=== PATIENT | female | born 1990 | race Caucasian/White ===

== ENCOUNTER 2016-06-18 03:06 | Emergency (ER) | payer OTHER ==
[~2016-06-18] VITALS: Ht 157.5 cm; Wt 130.5 kg
[~2016-06-18 03:06] MED LIST: ASCORBIC ACID500 M3 PO; BETHANECHOL CHL25 MG PO; BISACODYL5 MG PO; ERGOCALCIF50000 UNIT PO; FOLIC ACID1 MG PO; LOVENOX60 MG/0.6 SC; MOTRIN800 MG PO; NAPROSYN500 MG PO; NORCO 5/3251 TABLET PO; OXYCODONE HCL10 MG PO; POLYETHYLENE GL17 GM PO; SENNA-TIME S T1 EACH PO; SPRINTEC1 EACH PO; THERAGRAN1 TABLET PO; TRAMADOL HCL50 MG PO; TYLENOL EXTRA500 MG PO; XANAX0.25 MG PO
[2016-06-18 03:41] LABS: HEMATOCRIT 37.1 % (36.0-46.0); MCH 28.6 PG (29.0-34.0); MCHC 33.4 G/DL (30.0-36.0); MCV 85.7 FL (83-99); MEAN PLAT.VOLUME 9.2 uM^3 (9.5-12.4); PLATELET COUNT 299 K/uL (156-360); RBC DIS.WIDTH-CV 12.6 % (11.8-14.6); RBC DIS.WIDTH-SD 38.2 % (39-53); RED BLOOD COUNT 4.33 M/uL (3.80-5.20); WHITE BLOOD COUNT 12.4 K/uL (4.1-10.2)
[2016-06-18 03:59] LABS: CHLORIDE 105 mEq/L (99-109); POTASSIUM 3.4 mEq/L (3.7-5.4); SODIUM 137 mEq/L (136-147)
[2016-06-18 04:01] LABS: GLUCOSE 89 mg/dL (70-99)
[2016-06-18 04:03] LABS: ANION GAP 10 MEQ/L (2-14)
[2016-06-18 04:05] LABS: GFR ESTIMATE (CALCULATED) > 59 mL/min/
[2016-06-18 04:06] LABS: UREA NITROGEN (BUN) 9 mg/dL (9-23)
[2016-06-18 05:46] LABS: ADD MIUA? YES; BILIRUBIN NEGATIVE; BLOOD LARGE; COLOR DK YELLOW ((YELLOW)); GLUCOSE (STRIP) NEGATIVE; KETONES TRACE; LEUKOCYTES SMALL; NITRITE POSITIVE; PROTEIN (STRIP) 30; SPECIFIC GRAVITY 1.023 (1.000-1.030)
[2016-06-18 06:06] LABS: BACTERIA 4+; CASTS NONE SEEN /LPF; CRYSTALS NONE SEEN; EPITHELIAL CELLS 2+; MUCUS NONE SEEN; UCUL ADDED? YES
[2016-06-18] MEDS ORDERED: MACROBID100 MG PO (06:21)
[2016-06-18 06:43] VITALS: BP 128/78
[2016-06-19] MEDS ORDERED: ULTRAM50 MG PO (09:53)
[2016-06-19] MEDS ORDERED: FLEXERIL10 MG PO (09:53)
[2016-06-19] MEDS ORDERED: ZOLOFT50 MG PO (09:53)
== END 2016-06-18 06:45 | disposition home or self-care (01) ==
LOC: EME 03:06
PROVIDERS: Emergency Medicine
DX: O23.41 Unspecified infection of urinary tract in pregnancy, first trimester (principal)
CPT/HCPCS: 76801; 80048; 81003; 84702; 85027; 86900; 86901; 87086; 99281; 99284

== ENCOUNTER → 2016-06-19 | Outpatient (CLI) | payer OTHER ==
[~2016-06-19] VITALS: Ht 154.9 cm; Wt 130.4 kg
[~2016-06-19] MED LIST changes: +FLEXERIL10 MG PO; +MACROBID100 MG PO; +ULTRAM50 MG PO; +ZOLOFT50 MG PO
[2016-06-19 09:53] VITALS: BP 124/87
== END | disposition home or self-care (01) ==
LOC: IVINF 08:44
DX: O36.0990 Maternal care for other rhesus isoimmunization, unspecified trimester, not applicable or unspecified (principal); O20.0 Threatened abortion
CPT/HCPCS: 96372; J2790

== ENCOUNTER → 2017-04-28 | Outpatient (CLI) | payer OTHER ==
[~2017-04-28] VITALS: Ht 154.9 cm; Wt 134.5 kg
[~2017-04-28] MED LIST changes: +DOXYCYCLINE MO100 M1 PO; +PRENATAL MULTI1 EAC5 PO; +PYRIDIUM100 MG PO; +SULFAMETHOXAZO1 EAC4 PO
[2017-04-28 14:04] VITALS: BP 122/59
== END | disposition home or self-care (01) ==
LOC: IVINF 13:54
DX: Z31.82 Encounter for Rh incompatibility status (principal); O02.1 Missed abortion
CPT/HCPCS: 96372; J2790

== ENCOUNTER 2017-04-29 11:43 | Day surgery (SDC) | payer OTHER ==
[~2017-04-29] VITALS: Ht 157.5 cm; Wt 127.0 kg
[~2017-04-29 11:43] MED LIST changes: -DOXYCYCLINE MO100 M1 PO; -PYRIDIUM100 MG PO; -SULFAMETHOXAZO1 EAC4 PO
[2017-04-29] MEDS ORDERED: PYRIDIUM100 MG PO (12:01)
[2017-04-29] MEDS ORDERED: SULFAMETHOXAZO1 EAC4 PO (12:02)
[2017-04-29 12:04] VITALS: BP 118/61
[2017-04-29 12:32] LABS: HEMATOCRIT 39.2 % (36.0-46.0); MCH 28.3 PG (29.0-34.0); MCHC 32.1 G/DL (30.0-36.0); MCV 88.1 FL (83-99); MEAN PLAT.VOLUME 9.7 uM^3 (9.5-12.4); PLATELET COUNT 260 K/uL (156-360); RBC DIS.WIDTH-CV 12.7 % (11.8-14.6); RBC DIS.WIDTH-SD 41.1 % (39-53); RED BLOOD COUNT 4.45 M/uL (3.80-5.20); WHITE BLOOD COUNT 8.4 K/uL (4.1-10.2)
[2017-04-29] MEDS ORDERED: MOTRIN800 MG PO (14:29)
[2017-04-29] MEDS ORDERED: DOXYCYCLINE MO100 M1 PO (14:29)
[2017-04-29 18:40] VITALS: BP 125/71
[2017-04-29 19:23] VITALS: BP 122/70
== END 2017-04-29 19:30 | disposition home or self-care (01) ==
LOC: SDC 11:43
PROVIDERS: Obstetrics & Gynecology
PROC: 10D17ZZ Extraction of Products of Conception, Retained, Via Natural or Artificial Opening (ICD-10-PCS; principal; 2017-04-29)
DX: O02.1 Missed abortion (principal); Z3A.10 10 weeks gestation of pregnancy
CPT/HCPCS: 85027; 86850; 86870; 86900; 86901; 86905; 86920; 88305; J0330; J1100; J1170; J2250; J2405; J2590; J3010